=== PATIENT | male | born 1945 | race Hispanic/Latino ===

== ENCOUNTER 2021-08-11 07:03 | Observation (INO) | payer MEDICARE ==
[2021-08-09 09:18] LABS: BASOPHILS % (AUTO) 0.4 % (0.0-5.0); EOSINOPHILS % (AUTO) 2.9 % (0.0-8.0); HEMATOCRIT 34.2 % (42-54); LYMPHOCYTES % (AUTO) 16.2 % (21.0-51.0); MEAN CORPUSCULAR HEMOGLOBIN 28.2 pg (27.0-33.0); MEAN CORPUSCULAR HGB CONC 32.7 g/dL (32.0-36.0); MEAN CORPUSCULAR VOLUME 86.1 fL (79-99); MONOCYTES % (AUTO) 6.1 % (3.0-13.0); NEUTROPHILS % (AUTO) 73.5 % (40.0-77.0); PLATELET COUNT (AUTO) 302 K/uL (130-400); RED BLOOD CELL COUNT(AUTO) 3.97 MIL/uL (4.50-6.20); RED CELL DISTRIBUTION WIDTH 13.3 % (11.0-15.5); WHITE BLOOD COUNT (AUTO) 8.5 K/uL (4.8-10.8)
[2021-08-09 09:23] LABS: CREATININE 1.6 mg/dL (0.5-1.5); POTASSIUM 4.4 mmol/L (3.5-5.1)
[2021-08-09 09:26] LABS: APPEARANCE,URINE Clear (CLEAR); BILIRUBIN,URINE Negative (NEGATIVE); COLOR,URINE Yellow (YELLOW); GLUCOSE, URINE (UA) Negative (NEGATIVE); KETONES,URINE Negative (NEGATIVE); LEUKOCYTE ESTERASE ,URINE Negative (NEGATIVE); NITRATE,URINE Negative (NEGATIVE); OCCULT BLOOD,URINE Negative (NEGATIVE); PROTEIN,URINE Negative (NEGATIVE); UROBILINOGEN,URINE 0.2 mg/dL (0.2-1.0)
[2021-08-09 09:27] LABS: INR 1.05 (0.85-1.15); PROTHROMBIN TIME 11.4 SEC (9.6-11.6)
[2021-08-09 09:28] LABS: PARTIAL THROMBOPLASTIN TIME 35.3 SEC (26.3-35.5)
[2021-08-09 09:39] LABS: B-TYPE NATRIURETIC PEPTIDE 579 pg/mL (0-100)
[2021-08-11] VITALS (12 sets, daily range): BP systolic 82–145; BP diastolic 45–78
[~2021-08-11] VITALS: Ht 160 cm; Wt 101.6 kg
[~2021-08-11 07:03] MED LIST: AMLO-257 PO; APIX5TAB PO; ATOR40TA71 PO; DULA0.75 SQ; EZET10TA13 PO; LEVO200C2 PO; METO-391 PO; NITR0.4T50 SL; RANO500T6 PO; SOTA80TA PO; TAMS-1 PO; TORS20TA4 PO; VITAMIN D PO
[2021-08-11] MEDS: 0.9%NACL 1000ML 1,000 ML IV SCH ×2 (08:11→17:38)
[2021-08-11] MEDS ORDERED: IOHEXOL-350 50ML VIAL IV ONE (09:35)
[2021-08-11] MEDS ORDERED: BIVALIRUDIN 250 MG/VIAL IV ONE (09:35)
[2021-08-11] MEDS ORDERED: IOHEXOL 350 MG/ML 100ML INFUS..BTL IV ONE ×2 (09:35→11:25)
[2021-08-11] MEDS ORDERED: NITROGLYCERIN 2 MG VIAL IV ONE (09:35)
[2021-08-11] MEDS ORDERED: LIDOCAINE HCL 400MG/20ML VIAL ONE (09:35)
[2021-08-11] MEDS ORDERED: HEPARIN 10,000 UNIT/10ML (1,000 UNIT/ML) VIAL ONE ×2 (09:35→11:24)
[2021-08-11] MEDS ORDERED: CLOPIDOGREL 300MG TAB ONE (11:49)
[2021-08-11] MEDS ORDERED: ASPIRIN 325MG EC TAB PO ONE (11:49)
[2021-08-11] MEDS ORDERED: ACETAMINOPHEN WITH CODEINE 1 TAB TAB PO PRN ×2 (12:00)
[2021-08-11] MEDS ORDERED: TEMAZEPAM 30 MG CAP PO PRN (12:00)
[2021-08-11] MEDS ORDERED: MORPHINE 5 MG/ML VIAL (5MG OR GREATER DOSE) IVP SCH ×2 (12:00)
[2021-08-11] MEDS ORDERED: NITROGLYCERIN 0.4 MG SL TAB SL PRN (12:00)
[2021-08-11] MEDS ORDERED: ONDANSETRON 4MG INJ IVP PRN (12:00)
[2021-08-11] MEDS ORDERED: ONDANSETRON 4MG INJ IVP SCH (12:00)
[2021-08-11] MEDS ORDERED: NITROGLYCERIN 50MG/D5W 250ML 1 BOT IV PRN (12:00)
[2021-08-11] MEDS ORDERED: IPRATROPIUM/ALBUTEROL SULFATE 3 ML SOLUTION IH ONE (12:47)
[2021-08-11] MEDS ORDERED: RACEPINEPHRINE HCL 2.25% 0.5 ML NEB SOLN ONE (12:57)
[2021-08-11] MEDS ORDERED: IPRATROPIUM/ALBUTEROL SULFATE 3 ML SOLUTION IH SCH (13:00)
[2021-08-11] MEDS ORDERED: ATORVASTATIN 40 MG TABLET PO SCH (21:00)
[2021-08-11] MEDS ORDERED: TAMSULOSIN HCL 0.4 MG CAP.ER.24H PO SCH (21:00)
[2021-08-11] MEDS ORDERED: EZETIMIBE 10 MG TAB PO SCH (21:00)
[2021-08-11] MEDS: SOTALOL HCL 80 MG TABLET PO SCH (21:28)
[2021-08-11] MEDS: RANOLAZINE 500 MG TAB.SR.12H PO SCH (21:28)
[2021-08-12 00:02] VITALS: BP 100/48
[2021-08-12 04:00] VITALS: BP 103/48
[2021-08-12 05:42] LABS: HEMATOCRIT 29.9 % (42-54); MEAN CORPUSCULAR HGB CONC 33.1 g/dL (32.0-36.0); MEAN CORPUSCULAR VOLUME 84.7 fL (79-99); RED BLOOD CELL COUNT(AUTO) 3.53 MIL/uL (4.50-6.20); RED CELL DISTRIBUTION WIDTH 13.2 % (11.0-15.5); WHITE BLOOD COUNT (AUTO) 7.4 K/uL (4.8-10.8)
[2021-08-12 06:09] LABS: CREATININE 1.9 mg/dL (0.5-1.5); POTASSIUM 3.9 mmol/L (3.5-5.1)
[2021-08-12] MEDS ORDERED: CLOP75TA32 PO (07:07)
[2021-08-12] MEDS ORDERED: ASPI-1005 PO (07:07)
[2021-08-12 07:39] VITALS: BP 99/55
[2021-08-12] MEDS ORDERED: METOPROLOL SUCCINATE 50 MG TAB.SR.24H PO SCH (09:00)
[2021-08-12] MEDS ORDERED: AMLODIPINE 5 MG TAB PO SCH (09:00)
[2021-08-12] MEDS ORDERED: CLOPIDOGREL 75MG TAB PO SCH (09:00)
[2021-08-12] MEDS ORDERED: ASPIRIN 81MG CHEW TAB PO SCH (09:00)
[2021-08-12] MEDS ORDERED: PANTOPRAZOLE 40 MG TAB DR PO SCH (09:00)
[2021-08-12] MEDS: SOTALOL HCL 80 MG TABLET PO SCH (09:00)
[2021-08-12] MEDS ORDERED: LEVOTHYROXINE 100 MCG TABLET PO SCH (09:00)
[2021-08-12] MEDS ORDERED: TORSEMIDE 20 MG TAB PO SCH (09:00)
[2021-08-12] MEDS: RANOLAZINE 500 MG TAB.SR.12H PO SCH (09:16)
[2021-08-12 11:15] VITALS: BP 126/34
[2021-08-18] MEDS ORDERED: TRULICITY 0.75 MG SQ SCH (09:00)
[2021-08-18] MEDS ORDERED: ERGOCALCIFEROL (VITAMIN D2) 50,000 UNIT CAPSULE PO SCH (09:00)
== END 2021-08-12 14:12 | disposition home or self-care (01) ==
LOC: EDUNIT# → DAH 07:03 → DAHIP 07:04 → 4DH 13:29
PROVIDERS: ADMIT Internal Medicine Cardiovascular Disease; ATTEND Internal Medicine Cardiovascular Disease
DX: I25.10 Atherosclerotic heart disease of native coronary artery without angina pectoris (principal); E78.5 Hyperlipidemia, unspecified; I73.9 Peripheral vascular disease, unspecified; I12.9 Hypertensive chronic kidney disease with stage 1 through stage 4 chronic kidney disease, or unspecified chronic kidney disease; N18.30 Chronic kidney disease, stage 3 unspecified; E11.22 Type 2 diabetes mellitus with diabetic chronic kidney disease; E03.9 Hypothyroidism, unspecified; M10.9 Gout, unspecified; G47.33 Obstructive sleep apnea (adult) (pediatric); E66.9 Obesity, unspecified; I48.91 Unspecified atrial fibrillation; Z95.1 Presence of aortocoronary bypass graft; Z68.39 Body mass index [BMI] 39.0-39.9, adult
CPT/HCPCS: 36415 ×3; 71045; 80048 ×2; 80061; 81003; 82948 ×2; 83880; 85025; 85027; 85610; 85730 ×4; 92920; 93005 ×3; 93455; 94640; 96360; A4215; A4221; C1725; C1769 ×2; C1887 ×9; C1894 ×3; G0378 ×25; J1644 ×4; J3490 ×2; Q9965 ×3; Q9967 ×3; J0583